=== PATIENT | male | born 1945 | race Caucasian/White ===

== ENCOUNTER 2018-07-21 17:48 | Inpatient (IN) | payer MEDICARE ==
[~2018-07-21] VITALS: Ht 177.8 cm; Wt 62.1 kg
[2018-07-21 18:19] LABS: BASOPHILS ABSOLUTE AUTO 0.05 K/mm3 (0.00-0.23); BASOPHILS PERCENT AUTO 0 % (0-2); EOSINOPHILS ABSOLUTE AUTO 0.64 K/mm3 (0.00-0.68); EOSINOPHILS PERCENT AUTO 4 % (0-6); Hematocrit 48.3 % (37.0-53.0); Hemoglobin 15.8 g/dL (13.5-17.5); IMMATURE GRAN ABSOLUTE AUTO 0.15 K/mm3 (0.00-0.10); IMMATURE GRAN PERCENT AUTO 1 % (0-1); LYMPHOCYTES ABSOLUTE AUTO 3.73 K/mm3 (0.84-5.20); LYMPHOCYTES PERCENT AUTO 23 % (21-46); MONOCYTES ABSOLUTE AUTO 1.63 K/mm3 (0.16-1.47); MONOCYTES PERCENT AUTO 10 % (4-13); Mean Corpuscular HGB 32.2 pg (26.0-34.0); Mean Corpuscular HGB Conc 32.7 g/dL (31.5-36.5); Mean Corpuscular Volume 99 fL (80-100); Mean Platelet Volume 9.9 fL (9.1-12.4); NEUTROPHILS ABSOLUTE AUTO 10.15 K/mm3 (1.96-9.15); NEUTROPHILS PERCENT AUTO 62 % (41-73); Platelet Count 436 K/mm3 (150-400); RDW Coefficient Variation 14.7 % (11.7-14.2); RDW Standard Deviation 54.4 fL (35.1-46.3); White Blood Cell Count 16.35 K/mm3 (4.00-11.30)
[2018-07-21 18:27] LABS: Alanine Aminotransfer (ALT/SGP 26 U/L (12-78); Albumin, Blood 3.5 g/dL (3.4-5.0); Albumin/Globulin Ratio 0.9 (0.8-1.8); Alk Phos 126 U/L (50-136); Anion Gap 7 mmol/L (6-16); Aspartate Aminotrans (AST/SGOT 26 U/L (12-37); Bilirubin, Total 0.5 mg/dL (0.1-1.0); Blood Urea Nitrogen 14 mg/dL (8-24); CO2, Blood 26 mmol/L (21-32); Calcium, Blood 8.9 mg/dL (8.5-10.1); Chloride, Blood 107 mmol/L (98-108); Creatinine, Blood 0.61 mg/dL (0.60-1.20); Globulin, Blood 4.1 g/dL (2.2-4.0); Glomerular Filtration Rate >60 (60-); Glucose, Blood 77 mg/dL (70-99); Potassium, Blood 4.3 mmol/L (3.5-5.5); Sodium, Blood 140 mmol/L (136-145); Total Protein, Blood 7.6 g/dL (6.4-8.2)
[2018-07-21] MEDS ORDERED: ALBU90OI61 INH (18:34)
[2018-07-21] MEDS ORDERED: ALBU2.5V5 NEB (18:34)
[2018-07-21] MEDS ORDERED: LO-DOSE ASPIRIN81 MG PO (18:35)
[2018-07-21] MEDS ORDERED: Pacerone100 MG PO (18:35)
[2018-07-21] MEDS ORDERED: ATOR40TA PO (18:35)
[2018-07-21] MEDS ORDERED: BUDE6HFA INH (18:36)
[2018-07-21] MEDS ORDERED: CYCL10 PO (18:36)
[2018-07-21] MEDS ORDERED: FINA5 PO (18:37)
[2018-07-21] MEDS ORDERED: DULO30 PO (18:37)
[2018-07-21] MEDS ORDERED: DICL25ER PO (18:37)
[2018-07-21] MEDS ORDERED: OMEPRAZOLE20 MG PO (18:38)
[2018-07-21] MEDS ORDERED: MORP15ER PO (18:38)
[2018-07-21] MEDS ORDERED: OXYC5 PO (18:38)
[2018-07-21] MEDS ORDERED: TAMS.4ER PO (18:40)
[2018-07-21] MEDS ORDERED: SPIRIVA RESPIMAT4 GM INH (18:40)
[2018-07-21 19:35] LABS: Influenza A Negative (NEGATIVE); Influenza B Negative (NEGATIVE)
--- NOTE | 2018-07-22 00:14 | NUR ---
PT ARRIVES TO ICU 6 VIA GURNEY FROM ER A PCU STATUS PATIENT FOR DX OF COPD EXACERBATION. SPEAKING IN FULL SENTANCES, STATES THAT HE IS SOB WITH ACTIVITY, RESP RATE MID 20S, SATS 98% WITH OXYGEN AT 4 L/MIN VIA NC, INS/EXP WHEEZES NOTED, COARSE AND DIM BILAT BASES, RT AT BEDSIDE FOR UDN. HRR, SINUS ON MONITOR RATE 90S, PT DENIES CP/PRESSURE, BP STABLE AT THIS TIME, PULSES PALPABLE, EXTREMITIES PALE AND COOL, BRISK CAP REFILL. 20 G IV NOTED TO LEFT AC.
[2018-07-22 03:18] LABS: Hematocrit 41.5 % (37.0-53.0); Hemoglobin 13.6 g/dL (13.5-17.5); Mean Corpuscular HGB Conc 32.8 g/dL (31.5-36.5); Mean Corpuscular Volume 98 fL (80-100); Mean Platelet Volume 9.6 fL (9.1-12.4); Platelet Count 355 K/mm3 (150-400); RDW Coefficient Variation 14.7 % (11.7-14.2); RDW Standard Deviation 53.3 fL (35.1-46.3); Red Blood Cell Count 4.25 M/mm3 (4.30-5.90); White Blood Cell Count 8.27 K/mm3 (4.00-11.30)
[2018-07-22 03:36] LABS: Alanine Aminotransfer (ALT/SGP 22 U/L (12-78); Albumin, Blood 2.8 g/dL (3.4-5.0); Albumin/Globulin Ratio 0.8 (0.8-1.8); Alk Phos 101 U/L (50-136); Anion Gap 6 mmol/L (6-16); Aspartate Aminotrans (AST/SGOT 16 U/L (12-37); Bilirubin, Total 0.4 mg/dL (0.1-1.0); Blood Urea Nitrogen 18 mg/dL (8-24); Bun/Creatinine Ratio 27.8 (12.0-20.0); CO2, Blood 28 mmol/L (21-32); Calcium, Blood 8.2 mg/dL (8.5-10.1); Chloride, Blood 107 mmol/L (98-108); Creatinine, Blood 0.65 mg/dL (0.60-1.20); Globulin, Blood 3.3 g/dL (2.2-4.0); Glomerular Filtration Rate >60 (60-); Glucose, Blood 180 mg/dL (70-99); Potassium, Blood 4.5 mmol/L (3.5-5.5); Sodium, Blood 141 mmol/L (136-145); Total Protein, Blood 6.1 g/dL (6.4-8.2)
[2018-07-22 03:41] LABS: Adenovirus Not Detected (NOT DETECT); Bordetella pertussis Not Detected (NOT DETECT); Chlamydophila pneumoniae Not Detected (NOT DETECT); Coronavirus 229E Not Detected (NOT DETECT); Coronavirus HKU1 Not Detected (NOT DETECT); Coronavirus NL63 Not Detected (NOT DETECT); Coronavirus OC43 Not Detected (NOT DETECT); Human Metapneumovirus Not Detected (NOT DETECT); Human Rhinovirus/Enterovirus Not Detected (NOT DETECT); Influenza A Not Detected (NOT DETECT); Influenza A/2009-H1 Not Detected (NOT DETECT); Influenza A/H1 Not Detected (NOT DETECT); Influenza A/H3 Not Detected (NOT DETECT); Influenza B Not Detected (NOT DETECT); Mycoplasma pneumoniae Not Detected (NOT DETECT); Parainfluenza Virus 1 Not Detected (NOT DETECT); Parainfluenza Virus 2 Not Detected (NOT DETECT); Parainfluenza Virus 3 Not Detected (NOT DETECT); Parainfluenza Virus 4 Not Detected (NOT DETECT); Respiratory Syncytial Virus Not Detected (NOT DETECT)
--- NOTE | 2018-07-22 07:23 | NUR ---
PT AWAKE THROUGHOUT NOC, REMAINS ON OXYGEN AT 3 L/MIN VIA NC WHICH IS HIS HOME HS FLOW RATE FOR OXYGEN. HARSH INTERMITTENT COUGH PRODUCTIVE OF LIGHT GREEN/YELLOW SPUTUM, SPECIMEN SENT FOR CULTURE PER ORDERS, LUNGS CONTINUE WITH WHEEZES HOWEVER ARE IMPROVED AFTER UDN TREATMENTS. OTHERWISE NO ACUTE CHANGES
--- NOTE | 2018-07-22 07:30 | NUR ---
AM ASSESSMENT: Pt resting in bed on 2.5L o2 via NC. BIox is 94%. States that he is feeling very good. LS with wheezing throughout and course in the bases. HR reg. BT positive. PUsles palp. Pt states that he wears oxygen at home at 2-4L and feels good, like he is at baseline. VSS. Pt states that he his having some leg pain that is chronic. Rates his pain 7/10. States he takes flexeril for his pain. Denies other needs. VSS.
[2018-07-22] MEDS ORDERED: ACET325 PO (13:01)
[2018-07-22] MEDS ORDERED: ROBITUSSIN COU237 M1 PO (13:02)
[2018-07-22] MEDS ORDERED: LEVOFLOXACIN750 MG PO (13:03)
[2018-07-22] MEDS ORDERED: PRED10 PO (13:13)
[2018-07-22] MEDS ORDERED: SACC250C PO (13:14)
[2018-07-22] MEDS ORDERED: ONDA4ODT MM (13:14)
[2018-07-22] MEDS ORDERED: NICO21TP TOP (13:15)
--- NOTE | 2018-07-22 14:55 | NUR ---
Discharge: Pt was given verbal and written discharge instructions. Verbalized understanding. Denies questions. [facility] and spoke with pharmacist. IV was discontinued and cath intact. Pt left via w/c with heather. Stable at time of discharge.
== END 2018-07-22 14:20 | disposition home or self-care (01) | DRG 189 ==
LOC: ER 17:48 → ICUE 20:15 → PCU 20:15 → ERHOLD 21:33 → ICUE 07-22 00:13
PROVIDERS: Emergency Medicine; ADMIT Internal Medicine
PROC: 5A09357 Assistance with Respiratory Ventilation, Less than 24 Consecutive Hours, Continuous Positive Airway Pressure (ICD-10-PCS; principal; 2018-07-21)
DX: J96.01 Acute respiratory failure with hypoxia (principal); J44.1 Chronic obstructive pulmonary disease with (acute) exacerbation; J20.9 Acute bronchitis, unspecified; J96.02 Acute respiratory failure with hypercapnia; I25.10 Atherosclerotic heart disease of native coronary artery without angina pectoris; Z95.5 Presence of coronary angioplasty implant and graft; N40.0 Benign prostatic hyperplasia without lower urinary tract symptoms; K21.9 Gastro-esophageal reflux disease without esophagitis; E78.5 Hyperlipidemia, unspecified; F17.210 Nicotine dependence, cigarettes, uncomplicated; R00.0 Tachycardia, unspecified
CPT/HCPCS: 36415; 71045; 80053; 83605; 84145; 85025; 85027; 87070; 87186; 87205; 87486; 87581; 87633; 87798; 87804; 93005; 93010; 94640; 94644; 94660; 96372-59; 96374; 96375; 96376; 99285-25; J1650; J1956; J2930

== ENCOUNTER 2019-12-11 16:32 | Inpatient (IN) | payer OTHER ==
[~2019-12-11] VITALS: Ht 180.3 cm; Wt 65.8 kg
[~2019-12-11 16:32] MED LIST: ACET325 PO; CYCL10 PO; DICL25ER PO; DULO30 PO; LEVOFLOXACIN750 MG PO; MORP15ER PO; NICO21TP TOP; ONDA4ODT MM; OXYC5 PO; PRED10 PO; Pacerone100 MG PO; ROBITUSSIN COU237 M1 PO; SACC250C PO
[2019-12-11 17:08] LABS: BASOPHILS ABSOLUTE AUTO 0.05 K/mm3 (0.00-0.23); BASOPHILS PERCENT AUTO 0 % (0-2); EOSINOPHILS PERCENT AUTO 1 % (0-6); Hematocrit 42.1 % (37.0-53.0); Hemoglobin 13.4 g/dL (13.5-17.5); IMMATURE GRAN ABSOLUTE AUTO 0.11 K/mm3 (0.00-0.10); IMMATURE GRAN PERCENT AUTO 1 % (0-1); LYMPHOCYTES ABSOLUTE AUTO 1.85 K/mm3 (0.84-5.20); LYMPHOCYTES PERCENT AUTO 10 % (21-46); MONOCYTES ABSOLUTE AUTO 1.61 K/mm3 (0.16-1.47); MONOCYTES PERCENT AUTO 9 % (4-13); Mean Corpuscular HGB 27.1 pg (26.0-34.0); Mean Corpuscular HGB Conc 31.8 g/dL (31.5-36.5); Mean Corpuscular Volume 85 fL (80-100); Mean Platelet Volume 9.1 fL (9.1-12.4); NEUTROPHILS ABSOLUTE AUTO 14.06 K/mm3 (1.96-9.15); NEUTROPHILS PERCENT AUTO 79 % (41-73); Platelet Count 492 K/mm3 (150-400); RDW Coefficient Variation 18.2 % (11.7-14.2); RDW Standard Deviation 55.1 fL (35.1-46.3); Red Blood Cell Count 4.95 M/mm3 (4.30-5.90); White Blood Cell Count 17.78 K/mm3 (4.00-11.30)
[2019-12-11 17:21] LABS: Source, Urine Clean Catch
[2019-12-11 17:24] LABS: Appearance, Urine Hazy (Clear); Bilirubin, Urine Neg (Neg); Blood, Urine 2+ (Neg); Color, Urine Yellow (P-Yellow); Glucose Qualitative, Urine Neg (Neg); Ketones, Urine 2+ (Neg); Leukocyte Esterase, Urine 3+ (Neg); Nitrite, Urine Neg (Neg); Protein, Urine Neg (Neg); Urobilinogen, Urine NORM (Normal)
[2019-12-11 17:32] LABS: Alanine Aminotransfer (ALT/SGP 16 U/L (12-78); Albumin, Blood 3.4 g/dL (3.4-5.0); Alk Phos 131 U/L (50-136); Anion Gap 10 mmol/L (6-16); Aspartate Aminotrans (AST/SGOT 16 U/L (12-37); Bilirubin, Total 0.7 mg/dL (0.1-1.0); Blood Urea Nitrogen 11 mg/dL (8-24); CO2, Blood 23 mmol/L (21-32); Calcium, Blood 9.1 mg/dL (8.5-10.1); Chloride, Blood 109 mmol/L (98-108); Creatinine, Blood 0.85 mg/dL (0.60-1.20); Globulin, Blood 3.5 g/dL (2.2-4.0); Glomerular Filtration Rate >60 (60-); Glucose, Blood 109 mg/dL (70-99); Potassium, Blood 4.1 mmol/L (3.5-5.5); Sodium, Blood 142 mmol/L (136-145); Total Protein, Blood 6.9 g/dL (6.4-8.2); Troponin I <0.015 ng/mL (0.000-0.040)
[2019-12-11 17:38] LABS: Bacteria Mod /hpf; Mucus Light (0-Heavy); Squamous Epithelial Cells Rare /hpf (Few)
[2019-12-11] MEDS ORDERED: ELIQUIS2.5 MG PO (17:58)
[2019-12-11] MEDS ORDERED: ALBU90OI61 INH (22:12)
[2019-12-11] MEDS ORDERED: ASPIR 8181 M1 PO (22:12)
[2019-12-11] MEDS ORDERED: SYMBICORT 160-4.6 GM INH (22:13)
[2019-12-11] MEDS ORDERED: ATOR40TA PO (22:13)
[2019-12-11] MEDS ORDERED: FINA5 PO (22:14)
[2019-12-11] MEDS ORDERED: Vitamin D2000 UNIT PO (22:14)
[2019-12-11] MEDS ORDERED: METO25 PO (22:15)
[2019-12-11] MEDS ORDERED: XARELTO20 MG PO (22:16)
[2019-12-11] MEDS ORDERED: OMEP20ER PO (22:16)
[2019-12-11] MEDS ORDERED: SPIRIVA RESPIMAT4 G3 INH (22:17)
[2019-12-11] MEDS ORDERED: TAMS.4ER PO (22:17)
[2019-12-11] MEDS ORDERED: Loratadine10 MG PO (22:18)
[2019-12-11] MEDS ORDERED: FLUT.05NI (22:19)
[2019-12-11] MEDS ORDERED: DICLOFENAC SOD100 G1 TOP (22:20)
[2019-12-11] MEDS ORDERED: ALBU2.5V5 NEB (22:21)
[2019-12-12 01:22] LABS: BASOPHILS ABSOLUTE AUTO 0.02 K/mm3 (0.00-0.23); BASOPHILS PERCENT AUTO 0 % (0-2); EOSINOPHILS ABSOLUTE AUTO 0.02 K/mm3 (0.00-0.68); EOSINOPHILS PERCENT AUTO 0 % (0-6); Hemoglobin 11.1 g/dL (13.5-17.5); IMMATURE GRAN ABSOLUTE AUTO 0.06 K/mm3 (0.00-0.10); IMMATURE GRAN PERCENT AUTO 1 % (0-1); LYMPHOCYTES ABSOLUTE AUTO 2.51 K/mm3 (0.84-5.20); LYMPHOCYTES PERCENT AUTO 23 % (21-46); MONOCYTES ABSOLUTE AUTO 1.53 K/mm3 (0.16-1.47); MONOCYTES PERCENT AUTO 14 % (4-13); Mean Corpuscular HGB Conc 31.7 g/dL (31.5-36.5); Mean Corpuscular Volume 85 fL (80-100); NEUTROPHILS ABSOLUTE AUTO 6.81 K/mm3 (1.96-9.15); NEUTROPHILS PERCENT AUTO 62 % (41-73); RDW Coefficient Variation 17.6 % (11.7-14.2); RDW Standard Deviation 54.2 fL (35.1-46.3); Red Blood Cell Count 4.11 M/mm3 (4.30-5.90); White Blood Cell Count 10.95 K/mm3 (4.00-11.30)
[2019-12-12 01:25] LABS: Mean Platelet Volume 10.6 fL (9.1-12.4); Platelet Count 203 K/mm3 (150-400)
[2019-12-12 01:40] LABS: Anion Gap 4 mmol/L (6-16); Blood Urea Nitrogen 15 mg/dL (8-24); Bun/Creatinine Ratio 15.2 (12.0-20.0); CO2, Blood 27 mmol/L (21-32); Chloride, Blood 112 mmol/L (98-108); Creatinine, Blood 0.98 mg/dL (0.60-1.20); Glomerular Filtration Rate >60 (60-); Glucose, Blood 137 mg/dL (70-99); Potassium, Blood 4.3 mmol/L (3.5-5.5); Sodium, Blood 143 mmol/L (136-145); Troponin I 0.016 ng/mL (0.000-0.040)
--- NOTE | 2019-12-12 06:14 | NUR ---
FLASK HANDLER SUMMARY ASSUMED CARE AT 2144. PT WAS ABLE TO SIT UP IN BED AND EAT AT THAT TIME. HAS APPEARED TO SLEEP WELL THROUGHOUT THE REST OF THE NIGHT. NO ACUTE CHANGES, IV FLUIDS RUNNING. NO ACUTE DISTRESS AT THIS TIME. BED IN LOWEST POSTION WITH CALL LIGHT IN REACH. WILL CONTINUE TO MONTIOR AND REPORT TO ONCOMING RN.
--- NOTE | 2019-12-12 11:45 | NUR ---
COUGH: PATIENT REPORTS DISCOMFORT FROM COUGH. PATIENT REPORTS THE SPUTUM IS CLEAR. ALSO REPORTS SOME SOB. NOTIFIED RT AND REQUESTED BREATHING TREATMENT. NOTIFIED DR. RICHARDS, NEW ORDER PLACED TO ASSIST WITH COUGH (SEE EMAR)
--- NOTE | 2019-12-12 18:22 | NUR ---
END OF SHIFT SUMMARY: PATIENT DENIED PAIN THROUGHOUT SHIFT. PATIENT REPORTED DISCOMFORT RELATED TO HIS COUGH. PATIENT REPORTED IMPROVEMENT AFTER A BREATHING TREATMENT AND COUGH SYRUP. DENIED OTHER INTERVENTIONS. PATIENT DENIED DIFFICULTY VOIDING. THROUGHOUT THE SHIFT, COLOR OF URINE PROGRESSED FROM A DARK YELLOW TO A LIGHT YELLOW. PATIENT DENIED PAIN WHEN VOIDING OR AT REST. PATIENT UP AND INDEPENDENT IN THE ROOM. MESSAGE LEFT WITH PATIENT'S CAREGIVER TO ATTEMPT TO RECEIVE THE PATIENT'S MOST RECENT MEDICATION LIST. CALL[facility] AND REQUEST[facility] REPORTED THAT IT HAD BEEN FAXED YESTERDAY AND THAT HE WOULD FAX IT AGAIN. CONTINUE TO WAIT FOR MEDICATION LIST.
--- NOTE | 2019-12-13 06:23 | NUR ---
MANAGER [employer]PORATE STRATEGY SUMMARY PT A/OX4. INDEPENDENT IN ROOM. DENIES PAIN, NAUSEA, DIZZINESS. CALLS APPROPRIATELY. VSS. USES BEDSIDE URINAL. URINE HAS BEEN STRAINED WITH EACH VOID AND NO KIDNEY STONES SEEN. SLEPT WELL TONIGHT. NO ACUTE CHANGES.
[2019-12-13] MEDS ORDERED: CEFU500T30 PO (10:57)
--- NOTE | 2019-12-13 13:36 | NUR ---
DISCHARGE: PATIENT DENIED PAIN THIS MORNING. PATIENT REQUESTED COUGH SYRUP ONCE. PATIENT REPORTS HE IS FEELING WELL. URINE CONTINUES TO BE A LIGHT, CLEAR YELLOW. NO KIDNEY STONES NOTED. DISCHARGE ORDERS RECEIVED FOR PATIENT. [facility] PROVIDED DISCHARGE INSTRUCTIONS TO PATIENT. ALL QUESTIONS AND CONCERNS ADDRESSED. PATIENT DENIED FURTHER NEEDS. PATIENT STABLE AT TIME OF DISCHARGE. PATIENT DISCHARGED IN WHEELCHAIR WITH PILLOW CLEANER.
== END 2019-12-13 11:55 | disposition home or self-care (01) | DRG 872 ==
LOC: ER 16:32 → MEDS 21:23 → ENPENDDIS 12-13 10:30 → MEDS 12-13 11:55
PROVIDERS: Emergency Medicine; Nurse Practitioner Acute Care; ADMIT Internal Medicine
DX: A41.9 Sepsis, unspecified organism (principal); S22.089A Unspecified fracture of T11-T12 vertebra, initial encounter for closed fracture; N13.6 Pyonephrosis; I10 Essential (primary) hypertension; I73.9 Peripheral vascular disease, unspecified; J44.9 Chronic obstructive pulmonary disease, unspecified; F17.210 Nicotine dependence, cigarettes, uncomplicated; K44.9 Diaphragmatic hernia without obstruction or gangrene; K40.90 Unilateral inguinal hernia, without obstruction or gangrene, not specified as recurrent; K80.20 Calculus of gallbladder without cholecystitis without obstruction; R91.8 Other nonspecific abnormal finding of lung field; I25.10 Atherosclerotic heart disease of native coronary artery without angina pectoris; K21.9 Gastro-esophageal reflux disease without esophagitis; N40.0 Benign prostatic hyperplasia without lower urinary tract symptoms; E78.5 Hyperlipidemia, unspecified; Z95.1 Presence of aortocoronary bypass graft; Z79.82 Long term (current) use of aspirin; Z79.52 Long term (current) use of systemic steroids
CPT/HCPCS: 36415; 71046; 74176; 80048; 80053; 81001; 83605; 83690; 84484; 85025; 87040; 87086; 93005; 93010; 94640; 94760; 96361; 96365; 96375; 99285-25; A9270-GY; J0696; J1170; J2405; J7120